=== PATIENT | male | born 1970 | race Caucasian/White ===

== ENCOUNTER 2019-01-31 05:44 | Inpatient (IN) | payer BC ==
[2019-01-31] MEDS ORDERED: DESFLURANE 15 MIN (07:00)
[2019-01-31] MEDS ORDERED: LIDOCAINE 2% (SDV) 5 ML INJ (07:00)
[2019-01-31] MEDS: LACTATED RINGER'S 1,000 ML IV (07:10)
[2019-01-31] MEDS ORDERED: PROPOFOL 20 ML (07:58)
[2019-01-31] MEDS ORDERED: CEFAZOLIN 1 GM INJ (07:58)
[2019-01-31] MEDS ORDERED: ROCURONIUM 50 MG INJ (07:58)
[2019-01-31] MEDS ORDERED: GLYCOPYRROLATE 0.4 MG INJ (07:58)
[2019-01-31] MEDS ORDERED: NEOSTIGMINE 3 MG/3 ML SYRINGE (07:58)
[2019-01-31] MEDS ORDERED: DEXAMETHASONE 4 MG/ML 5 ML INJ (07:59)
[2019-01-31] MEDS ORDERED: FENTAnyl 50 MCG/ML VIAL ×3 (07:59→14:02)
[2019-01-31] MEDS ORDERED: MIDAZOLAM 1 MG/ML 2 ML INJ (07:59)
[2019-01-31] MEDS ORDERED: ONDANSETRON 4 MG INJ (07:59)
[2019-01-31] MEDS: CEFAZOLIN 2 GM/50 ML (PMX) 50 ML IVPB (08:00)
[2019-01-31] MEDS ORDERED: TRIMETHOBENZAMIDE 100 MG/ML VIAL IM (08:30)
[2019-01-31] MEDS ORDERED: ALBUTEROL 0.083% (NEB) 2.5 MG/3 ML AMP HHN (08:30)
[2019-01-31] MEDS ORDERED: LABETALOL HCL 20MG INJ IV (08:30)
[2019-01-31] MEDS ORDERED: EPHEDrine 25 MG/5 ML SYG IV (08:30)
[2019-01-31] MEDS ORDERED: FENTAnyl 50 MCG/ML VIAL IV ×3 (08:30)
[2019-01-31] MEDS ORDERED: OXYCODONE/ACETAMINOPHEN (5/325) TAB PO ×2 (08:30)
[2019-01-31] MEDS ORDERED: HYDROmorphONE 1 MG/5 ML IV SYRINGE IV (08:30)
[2019-01-31] MEDS ORDERED: hydrALAzine 20 MG INJ IV (08:30)
[2019-01-31] MEDS ORDERED: MEPERIDINE 25 MG INJ IV (08:30)
[2019-01-31] MEDS ORDERED: DIPHENHYDRAMINE 50 MG INJ IV (08:30)
[2019-01-31] MEDS ORDERED: MIDAZOLAM 1 MG/ML 2 ML INJ IV (08:30)
[2019-01-31] MEDS ORDERED: IPRATROPIUM (NEB) 0.5 MG/2.5 ML AMP HHN (08:30)
[2019-01-31] MEDS: BUPIVACAINE 0.5%/EPI (SDV) 30 ML INJ (09:39)
[2019-01-31] MEDS: THROMBIN 5000 UNIT VIAL ×2 (09:40→09:41)
[2019-01-31] MEDS: GELATIN SIZE 100 SPONGE (10:37)
[2019-01-31] MEDS: POLYMYXIN/BACITRACIN 1L IRRIG (10:37)
[2019-01-31] MEDS: DEXTROSE 5%-0.45% NACL 1,000 ML IV ×2 (14:38→23:20)
[2019-01-31] MEDS: HYDROmorphONE 1 MG/5 ML IV SYRINGE IV ×2 (14:42→15:14)
[2019-01-31] MEDS: ONDANSETRON 4 MG INJ IV (14:42)
[2019-01-31] MEDS ORDERED: NALOXONE (0.4 MG/ML) INJ IV (15:00)
[2019-01-31] MEDS ORDERED: ONDANSETRON 4 MG INJ IV (15:00)
[2019-01-31] MEDS ORDERED: ACETAMINOPHEN 325 MG TAB PO (15:00)
[2019-01-31] MEDS ORDERED: NACL 0.9% 3 ML SYG IV (15:00)
[2019-01-31] MEDS ORDERED: AL HYDROX/MG HYDROX/SIMETH 30 ML CUP PO (15:00)
[2019-01-31] MEDS ORDERED: HYDROCODONE/APAP (5/325) TAB PO (15:00)
[2019-01-31] MEDS ORDERED: PROCHLORPERAZINE 10 MG TAB PO (15:00)
[2019-01-31] MEDS: ACETAMINOPHEN 1000MG/100ML IV 100 ML IVPB ×2 (15:15→21:13)
[2019-01-31 15:43] LABS: HEMATOCRIT 42.2 % (42.0-52.0); HEMOGLOBIN 14.1 g/dl (14.0-18.0)
[2019-01-31] MEDS: HYDROmorphONE 0.2 MG/ML PCA IV (16:02)
[2019-01-31] MEDS: CEFAZOLIN 1 GM/50 ML (PMX) 50 ML IVPB ×2 (18:08→23:21)
[2019-02-01] MEDS: DEXTROSE 5%-0.45% NACL 1,000 ML IV ×3 (00:38→20:38)
[2019-02-01] MEDS: ACETAMINOPHEN 1000MG/100ML IV 100 ML IVPB ×2 (05:18→14:00)
[2019-02-01 05:45] LABS: HEMATOCRIT 38.8 % (42.0-52.0)
[2019-02-01] MEDS: CEFAZOLIN 1 GM/50 ML (PMX) 50 ML IVPB ×2 (05:51→12:23)
[2019-02-01 06:13] LABS: ANION GAP 4 (5-13); BLOOD UREA NITROGEN 12 mg/dl (7-20); CALCIUM 8.3 mg/dl (8.4-10.2); CARBON DIOXIDE 30 mmol/L (21-31); CHLORIDE 106 mmol/L (97-110); CREATININE 0.92 mg/dl (0.61-1.24); Estimated GFR > 60 mL/min (>60); GLUCOSE 136 mg/dl (70-220); SODIUM 140 mmol/L (135-144)
[2019-02-01] MEDS: LACTATED RINGER'S 1,000 ML IV (06:16)
[2019-02-01 06:28] LABS: POTASSIUM 4.3 mmol/L (3.5-5.1)
[2019-02-01] MEDS: DOCUSATE SODIUM 100 MG CAP PO ×2 (08:32→22:17)
[2019-02-01] MEDS ORDERED: HYDROmorphONE 0.5 MG/0.5 ML SYG IV (09:30)
[2019-02-01] MEDS: HYDROCODONE/APAP (5/325) TAB PO ×3 (13:37→22:16)
[2019-02-02] MEDS: HYDROCODONE/APAP (5/325) TAB PO ×4 (05:00→20:40)
[2019-02-02] MEDS: LACTATED RINGER'S 1,000 ML IV (06:30)
[2019-02-02] MEDS: DEXTROSE 5%-0.45% NACL 1,000 ML IV ×2 (06:38→16:38)
[2019-02-02] MEDS: DOCUSATE SODIUM 100 MG CAP PO ×2 (10:04→20:40)
[2019-02-03] MEDS: HYDROCODONE/APAP (5/325) TAB PO (02:26)
[2019-02-03] MEDS: MAGNESIUM HYDROXIDE 30ML CUP PO (02:27)
[2019-02-03] MEDS: DEXTROSE 5%-0.45% NACL 1,000 ML IV (02:38)
[2019-02-03] MEDS: DOCUSATE SODIUM 100 MG CAP PO (11:09)
== END 2019-02-03 14:00 | disposition home or self-care (01) | DRG 455 ==
LOC: REC 05:44 → MS1 17:27
PROC: 0SG00AJ Fusion of Lumbar Vertebral Joint with Interbody Fusion Device, Posterior Approach, Anterior Column, Open Approach (ICD-10-PCS; principal; 2019-01-31 08:00)
PROC: 0SG00K1 Fusion of Lumbar Vertebral Joint with Nonautologous Tissue Substitute, Posterior Approach, Posterior Column, Open Approach (ICD-10-PCS; 2019-01-31 08:00)
PROC: 0SB20ZZ Excision of Lumbar Vertebral Disc, Open Approach (ICD-10-PCS; 2019-01-31 08:00)
DX: M43.16 Spondylolisthesis, lumbar region (principal); M48.061 Spinal stenosis, lumbar region without neurogenic claudication; M54.16 Radiculopathy, lumbar region; Z87.891 Personal history of nicotine dependence
CPT/HCPCS: 72110; 80048; 85014; 85018; 86850; 86900; 86901; 88304; 97116; 97162; 97530